=== PATIENT | male | born 1970 | race Caucasian/White ===

== ENCOUNTER 2017-05-11 16:18 | Observation (INO) | payer OTHER ==
[~2017-05-11 16:18] MED LIST: METF500T PO
[2017-05-11 20:00] VITALS: BP 156/98; PULSE 58; RESP 18; TEMP 98.1; O2SAT 98
[2017-05-11] MEDS ORDERED: ZOLPIDEM TARTRATE 10 MG TAB PO PRN (21:45)
[2017-05-12] VITALS (7 sets, daily range): BP systolic 140–177; BP diastolic 82–102; PULSE 56–84; RESP 18–20; TEMP 97.9–98.1; O2SAT 94–97
[2017-05-12] MEDS ORDERED: NITROGLYCERIN 0.4 MG SL 25 TABS/BTL SL PRN (07:45)
[2017-05-12] MEDS ORDERED: ACETAMINOPHEN 500 MG CPLT PO PRN (07:45)
[2017-05-12] MEDS ORDERED: SODIUM CHLORIDE 0.9% FLUSH 10 ML FLUSH IV FLUSH PRN (07:45)
[2017-05-12] MEDS ORDERED: ONDANSETRON HCL 4 MG/2 ML VIAL IV PUSH PRN (07:45)
[2017-05-12] MEDS ORDERED: LISINOPRIL 10 MG TAB PO SCH (09:00)
[2017-05-12] MEDS ORDERED: ASPIRIN 325 MG TAB PO SCH (09:00)
[2017-05-12] MEDS ORDERED: SODIUM CHLORIDE 0.9% FLUSH 10 ML FLUSH IV FLUSH SCH (09:00)
--- NOTE | 2017-05-12 09:15 | HHI.HP ---
HPI Primary Care Physician Non-Staff Past Family Social History Allergies: Coded Allergies: No Known Allergies (Verified Allergy, Mild, 05/11/17) Reported Medications Reported Meds & Active Scripts Active Reported Metformin (Metformin HCl) 500 Mg Tab 500 Mg PO BIDPC With meals Active Ordered Medications Current Medications Medications (Trade) Dose Ordered Sig/Macy Route Start Time Stop Time Status Last Admin (Ambien) 10 mg HS PRN PO 05/11/17 21:45 05/11/17 22:40 (NS Flush) 2 ml UNSCH PRN IV FLUSH 05/12/17 07:45 (NS Flush) 2 ml BID IV FLUSH 05/12/17 09:00 (Tylenol) 500 mg Q4H PRN PO 05/12/17 07:45 (Zofran Inj) 4 mg Q6H PRN IV PUSH 05/12/17 07:45 (Prinivil) 10 mg DAILY PO 05/12/17 09:00 (Nitrostat Sl) 0.4 mg Q5M PRN SL 05/12/17 07:45 (Aspirin) 325 mg DAILY PO 05/12/17 09:00 Physical Exam Vital Signs Vital Signs Date Time Temp Pulse Resp B/P (MAP) Pulse Ox O2 Delivery O2 Flow Rate FiO2 05/12/17 08:01 97.9 05/12/17 07:51 63 20 143/83 (103) 94 05/12/17 04:20 98.1 78 18 177/102 (127) 94 05/12/17 03:02 84 05/12/17 00:33 98.0 56 18 150/87 (108) 97 05/11/17 20:00 98.1 58 18 156/98 (117) 98 Laboratory Laboratory Tests Test 05/11/17 21:22 Troponin I LESS THAN 0.02 Caprini VTE Risk Assessment Caprini Risk Assessment Model Point Value = 1 Point Value = 2 Point Value = 3 Point Value = 5 Age 41-60 Minor surgery BMI > 25 kg/m2 Swollen legs Varicose veins or History of unexplained or recurrent spontaneous Oral contraceptives or hormone replacement Sepsis (< 1 month) Serious lung disease, including pneumonia (< 1 month) Abnormal pulmonary function Acute myocardial infarction Congestive heart failure (< 1 month) History of inflammatory bowel disease Medical patient at bed rest Age 61-74 Arthroscopic surgery Major open surgery (> 45 min) Laparoscopic surgery (> 45 min) Malignancy Confined to bed (> 72 hours) Immobilizing plaster cast Central venous access Age >= 75 History of VTE Family history of VTE Factor V Leiden Prothrombin [id number] Lupus anticoagulant Anticardiolipin antibodies Elevated serum homocysteine Heparin-induced thrombocytopenia Other congenital or acquired thrombophilia Stroke (< 1 month) Elective arthroplasty Hip, pelvis, or leg fracture Acute spinal cord injury (< 1 month) Prophylaxis Regimen Total Risk Factor Score Risk Level Prophylaxis Regimen 0-1 Low Early ambulation 2 Moderate Order ONE of the following: *Sequential Compression Device (SCD) *Heparin 5000 units SQ BID 3-4 Higher Order ONE of the following medications: *Heparin 5000 units SQ TID *Enoxaparin/Lovenox 40 mg SQ daily (WT < 150 kg, CrCl > 30 mL/min) *Enoxaparin/Lovenox 30 mg SQ daily (WT < 150 kg, CrCl > 10-29 mL/min) *Enoxaparin/Lovenox 30 mg SQ BID (WT < 150 kg, CrCl > 30 mL/min) AND/OR *Sequential Compression Device (SCD) 5 or more Highest Order ONE of the following medications: *Heparin 5000 units SQ TID (Preferred with Epidurals) *Enoxaparin/Lovenox 40 mg SQ daily (WT < 150 kg, CrCl > 30 mL/min) *Enoxaparin/Lovenox 30 mg SQ daily (WT < 150 kg, CrCl > 10-29 mL/min) *Enoxaparin/Lovenox 30 mg SQ BID (WT < 150 kg, CrCl > 30 mL/min) AND *Sequential Compression Device (SCD) Francine Cyr May 12, 2017 09:15
--- NOTE | 2017-05-12 09:21 | HHI.HP ---
HPI Primary Care Physician Non-Staff Past Family Social History Allergies: Coded Allergies: No Known Allergies (Verified Allergy, Mild, 05/11/17) Reported Medications Reported Meds & Active Scripts Active Reported Metformin (Metformin HCl) 500 Mg Tab 500 Mg PO BIDPC With meals Active Ordered Medications Current Medications Medications (Trade) Dose Ordered Sig/Macy Route Start Time Stop Time Status Last Admin (Ambien) 10 mg HS PRN PO 05/11/17 21:45 05/11/17 22:40 (NS Flush) 2 ml UNSCH PRN IV FLUSH 05/12/17 07:45 (NS Flush) 2 ml BID IV FLUSH 05/12/17 09:00 (Tylenol) 500 mg Q4H PRN PO 05/12/17 07:45 (Zofran Inj) 4 mg Q6H PRN IV PUSH 05/12/17 07:45 (Prinivil) 10 mg DAILY PO 05/12/17 09:00 (Nitrostat Sl) 0.4 mg Q5M PRN SL 05/12/17 07:45 (Aspirin) 325 mg DAILY PO 05/12/17 09:00 Physical Exam Vital Signs Vital Signs Date Time Temp Pulse Resp B/P (MAP) Pulse Ox O2 Delivery O2 Flow Rate FiO2 05/12/17 08:01 97.9 05/12/17 07:51 63 20 143/83 (103) 94 05/12/17 04:20 98.1 78 18 177/102 (127) 94 05/12/17 03:02 84 05/12/17 00:33 98.0 56 18 150/87 (108) 97 05/11/17 20:00 98.1 58 18 156/98 (117) 98 Laboratory Laboratory Tests Test 05/11/17 21:22 Troponin I LESS THAN 0.02 Caprini VTE Risk Assessment Caprini Risk Assessment Model Point Value = 1 Point Value = 2 Point Value = 3 Point Value = 5 Age 41-60 Minor surgery BMI > 25 kg/m2 Swollen legs Varicose veins or History of unexplained or recurrent spontaneous Oral contraceptives or hormone replacement Sepsis (< 1 month) Serious lung disease, including pneumonia (< 1 month) Abnormal pulmonary function Acute myocardial infarction Congestive heart failure (< 1 month) History of inflammatory bowel disease Medical patient at bed rest Age 61-74 Arthroscopic surgery Major open surgery (> 45 min) Laparoscopic surgery (> 45 min) Malignancy Confined to bed (> 72 hours) Immobilizing plaster cast Central venous access Age >= 75 History of VTE Family history of VTE Factor V Leiden Prothrombin [id number] Lupus anticoagulant Anticardiolipin antibodies Elevated serum homocysteine Heparin-induced thrombocytopenia Other congenital or acquired thrombophilia Stroke (< 1 month) Elective arthroplasty Hip, pelvis, or leg fracture Acute spinal cord injury (< 1 month) Prophylaxis Regimen Total Risk Factor Score Risk Level Prophylaxis Regimen 0-1 Low Early ambulation 2 Moderate Order ONE of the following: *Sequential Compression Device (SCD) *Heparin 5000 units SQ BID 3-4 Higher Order ONE of the following medications: *Heparin 5000 units SQ TID *Enoxaparin/Lovenox 40 mg SQ daily (WT < 150 kg, CrCl > 30 mL/min) *Enoxaparin/Lovenox 30 mg SQ daily (WT < 150 kg, CrCl > 10-29 mL/min) *Enoxaparin/Lovenox 30 mg SQ BID (WT < 150 kg, CrCl > 30 mL/min) AND/OR *Sequential Compression Device (SCD) 5 or more Highest Order ONE of the following medications: *Heparin 5000 units SQ TID (Preferred with Epidurals) *Enoxaparin/Lovenox 40 mg SQ daily (WT < 150 kg, CrCl > 30 mL/min) *Enoxaparin/Lovenox 30 mg SQ daily (WT < 150 kg, CrCl > 10-29 mL/min) *Enoxaparin/Lovenox 30 mg SQ BID (WT < 150 kg, CrCl > 30 mL/min) AND *Sequential Compression Device (SCD) Assessment and Plan Assessment and Plan Atypical chest pain Diabetes Hypertension Tobacco use Francine Cyr May 12, 2017 09:21
--- NOTE | 2017-05-12 10:38 | HHI.HP ---
[facility] Primary Care Physician Dr. Sandra Yeager ([facility]) Chief Complaint Chest pain History of Present Illness 46-year-old male with history of diabetes presents to emergency room for further evaluation of chest pain. Onset 2 nights ago while watching TV. Location substernal and left anterior chest. Initially thought discomfort was related to indigestion and took 1 Tums. Pain continued and he was able to fall sleep. Upon awakening chest pressure continued. He proceeded to go to work while driving to work and increase of pressure. After arriving at work he felt "poorly." He decided to leave work and go to emergency room for further evaluation of pain. Duration Constant.No Radiation of pain. Associated symptoms Included slight nausea, shortness of breath. Denying vomiting or diaphoresis. It did not hurt to take a deep breath. No known precipitating or relieving factors. Currently reports only "slight chest pressure." Review of Systems General: No fatigue,weakness, fever, chills, recent illness, or change in appetite. Endorses he quit using metformin 3 weeks ago while on vacation and never restarted. Otherwise has been in his general state of health. HEENT: No Damon CV: As stated above. No palpitations or dizziness. RESP: No SOB, cough, sputum production, recent URI, history of asthma, or wheezing. Diagnosis sleep apnea approximately 10 years ago, does not use CPAP. GI: No nausea, vomiting, bowel changes, diarrhea, constipation, pain, distention , melena, or blood in the stool. No change in appetite, no unintentional weight gain or weight loss. : No dysuria, urgency, or frequency EXT: No lower leg edema, no paraesthesias MS: No discomfort, injury, trauma, recent fall, or change in ROM. Intermittent upon awakening in morning, bilateral lower extremity cramping. Also reports x2 weekly, legs become week and he falls to his knees (happening for about 3 months ). NEURO: No change in memory, dizziness, difficulty with balance, LOC, motor/ sensory deficits PSYCH: No anxiety or depression. Current situation stress at his employment. SKIN: No rashes, no concerning lesions Past Family Social History Allergies: Coded Allergies: No Known Allergies (Verified Allergy, Mild, 05/11/17) Past Medical History Diabetes (type II)-diagnosed 07/2016 Past Surgical History None Reported Medications Active Reported Metformin (Metformin HCl) 500 Mg Tab 500 Mg PO BIDPC-HAS NOT TAKEN IN 3 WEEKS Active Ordered Medications Current Medications Medications (Trade) Dose Ordered Sig/Macy Route Start Time Stop Time Status Last Admin (Ambien) 10 mg HS PRN PO 05/11/17 21:45 05/11/17 22:40 (NS Flush) 2 ml UNSCH PRN IV FLUSH 05/12/17 07:45 (NS Flush) 2 ml BID IV FLUSH 05/12/17 09:00 05/12/17 09:28 (Tylenol) 500 mg Q4H PRN PO 05/12/17 07:45 (Zofran Inj) 4 mg Q6H PRN IV PUSH 05/12/17 07:45 (Prinivil) 10 mg DAILY PO 05/12/17 09:00 05/12/17 09:26 (Nitrostat Sl) 0.4 mg Q5M PRN SL 05/12/17 07:45 (Aspirin) 325 mg DAILY PO 05/12/17 09:00 05/12/17 09:26 Family History No early onset cardiovascular disease Social History Diagnosis with diabetes 9 months ago. No known hypertensive, CAD, or hyperlipidemia. Rarely smokes cigarettes reporting 2/month. Rare alcohol use. Denies any illegal drug use. Endorses a sedentary lifestyle. . Works in customer service at a [employer] Past Cardiac Testing None Physical Exam Vital Signs Vital Signs Date Time Temp Pulse Resp B/P (MAP) Pulse Ox O2 Delivery O2 Flow Rate FiO2 05/12/17 08:01 97.9 05/12/17 07:51 63 20 143/83 (103) 94 05/12/17 04:20 98.1 78 18 177/102 (127) 94 05/12/17 03:02 84 05/12/17 00:33 98.0 56 18 150/87 (108) 97 05/11/17 20:00 98.1 58 18 156/98 (117) 98 Physical Exam GENERAL: Alert WN, WD, NAD, pleasant, male HEAD: NC, AT EYES: Sclera clear, conjunctiva without injection, pupils equal and round ENT: Mucous membranes pink and moist NECK: Supple, no masses, trachea midline CV: RRR, without murmur, rub, gallop, no JVD, S1-S2 no S3-S4. No carotid or femoral bruits. RESP: Clear lungs throughout bilateral, no crackles, wheeze, rhonchi, symmetrical chest rise, nonlabored, able to speak in full sentences ABD: Soft, NT, ND, no masses, positive bowel tones EXT: Pulses +24, no dependent edema MS: Normal tone 4 extremities, nontender, no obvious deformities, full range of motion NEURO: CN II through CN XII grossly intact, motor strength 5/5, gait WNL PSYCH: A+O 3, pleasant affect, appropriate speech, appropriate mood and affect , insight and judgment SKIN: Normal turgor, normal texture, no lesions, no rashes, brisk cap refill, even hair distribution Laboratory Laboratory Tests Test 05/11/17 21:22 Troponin I LESS THAN 0.02 Imaging Chest x-ray completed [facility].. Interpreted by radiologist read as no acute cardiopulmonary findings. Course EKG Normal sinus rhythm, normal axis, no ST change, nonspecific T-wave changes Caprini VTE Risk Assessment Caprini VTE Risk Assessment: No/Low Risk (score <= 1) Caprini Risk Assessment Model Point Value = 1 Point Value = 2 Point Value = 3 Point Value = 5 Age 41-60 Minor surgery BMI > 25 kg/m2 Swollen legs Varicose veins or History of unexplained or recurrent spontaneous Oral contraceptives or hormone replacement Sepsis (< 1 month) Serious lung disease, including pneumonia (< 1 month) Abnormal pulmonary function Acute myocardial infarction Congestive heart failure (< 1 month) History of inflammatory bowel disease Medical patient at bed rest Age 61-74 Arthroscopic surgery Major open surgery (> 45 min) Laparoscopic surgery (> 45 min) Malignancy Confined to bed (> 72 hours) Immobilizing plaster cast Central venous access Age >= 75 History of VTE Family history of VTE Factor V Leiden Prothrombin [id number] Lupus anticoagulant Anticardiolipin antibodies Elevated serum homocysteine Heparin-induced thrombocytopenia Other congenital or acquired thrombophilia Stroke (< 1 month) Elective arthroplasty Hip, pelvis, or leg fracture Acute spinal cord injury (< 1 month) Prophylaxis Regimen Total Risk Factor Score Risk Level Prophylaxis Regimen 0-1 Low Early ambulation 2 Moderate Order ONE of the following: *Sequential Compression Device (SCD) *Heparin 5000 units SQ BID 3-4 Higher Order ONE of the following medications: *Heparin 5000 units SQ TID *Enoxaparin/Lovenox 40 mg SQ daily (WT < 150 kg, CrCl > 30 mL/min) *Enoxaparin/Lovenox 30 mg SQ daily (WT < 150 kg, CrCl > 10-29 mL/min) *Enoxaparin/Lovenox 30 mg SQ BID (WT < 150 kg, CrCl > 30 mL/min) AND/OR *Sequential Compression Device (SCD) 5 or more Highest Order ONE of the following medications: *Heparin 5000 units SQ TID (Preferred with Epidurals) *Enoxaparin/Lovenox 40 mg SQ daily (WT < 150 kg, CrCl > 30 mL/min) *Enoxaparin/Lovenox 30 mg SQ daily (WT < 150 kg, CrCl > 10-29 mL/min) *Enoxaparin/Lovenox 30 mg SQ BID (WT < 150 kg, CrCl > 30 mL/min) AND *Sequential Compression Device (SCD) Assessment and Plan Assessment and Plan #1 Atypical chest pain-admitted to chest pain center. Ruled out with 3 sets of EKGs, cardiac enzymes, and monitored overnight. Seen and evaluated by Dr. Garrick Serrano. Completed exercise stress test which did not indicate ischemia. Discharge later this afternoon. Follow-up with PCP if pain persists. Instructed discomfort likely musculoskeletal, use heating pad to affected area, and/or [id number] Aleve or Motrin as needed. Patient agreeable to plan of care. #2 Diabetes-reorder metformin (refills provided), encouraged increasing daily activity, discussed in length diabetic diet, avoiding sugar, flour, and sugary beverages. Discussed importance of tight blood glucose control, effects of uncontrolled diabetes, and how diabetes is a progressive disease. Encouraged obtaining a baseline eye exam and follow-up with PCP. Notify PCP of bilateral lower leg discomfort accompanied with intermittent weakness to discuss possible neuropathy. #3 Hypertension-lisinopril 10 mg daily, encouraged low sodium diet, blood pressure log, and follow-up with PCP. Education provided lisinopril is renal protective with diabetes diagnosis. #4 Tobacco use-encouraged and stressed the importance of tobacco cessation even in small amounts. Instructed to avoid tobacco all together. Francine Cyr May 12, 2017 10:38
[2017-05-12] MEDS ORDERED: METF500T PO (10:53)
[2017-05-12] MEDS ORDERED: LISI10TA3 PO (10:53)
--- NOTE | 2017-05-12 11:00 | HHI.DCPOC ---
Discharge Care Plan Diagnosis: (1) Atypical chest pain (2) Hypertension (3) Type 2 diabetes mellitus Goals to Promote Your Health * To prevent worsening of your condition and complications * To maintain your health at the optimal level Directions to Meet Your Goals Take your medications as prescribed Follow your dietary instruction Follow activity as directed Keep your appointments as scheduled Take your immunizations and boosters as scheduled If your symptoms worsen call your PCP, if no PCP go to Urgent Care Center or Emergency Room Smoking is Dangerous to Your Health. Avoid second hand smoke Call the 24-hour hour crisis hotline for domestic abuse at Francine Cyr May 12, 2017 11:00
--- NOTE | 2017-05-12 13:26 | TR ---
Date Performed: 05/12/2017 Time Performed: 10:31:48 DOCTOR: Garrick Serrano DRUG LIST: CLINICAL HISTORY: CHEST PAIN REASON FOR TEST: Chest pain REASON FOR ENDING: OBSERVATION: CONCLUSION: Viraj protocol performed test stopped secondary to exceeding target heart rate and l eg fatigue. No reproduciple chest pain. No ST segment changes to indicate ischemia. No ectopy. Hypert ensive BP response. Quick and unremarkable recovery. 6 minutes post recovery T waves upright, returni ng to t wave inversion at [address] depression inferiorly and lead V5, V6. Good exer cise tolerance. Maximum AN=183 Target HR Achieved=90.0% Maximum IX=909/106 Total Exercise Time=8:11 COMMENTS: Conclusion: Normal treadmill exercise. No evidence of ischemia.
--- NOTE | 2017-05-14 14:18 | EKG ---
Date Performed: 05/11/2017 Time Performed: 21:23:05 PTAGE: 46 years EKG: SINUS BRADYCARDIA NONSPECIFIC T-WAVE ABNORMALITY BORDERLINE ECG NO PREVIOUS TRACING DOCTOR: Yohannes Zheng Interpretating Date/Time 05/14/2017 14:16:31
== END 2017-05-12 12:32 | disposition home or self-care (01) ==
LOC: NEDDLT 18:58 → NEPFCDU 19:08
PROVIDERS: ADMIT Internal Medicine Cardiovascular Disease; ATTEND Internal Medicine Cardiovascular Disease
DX: R07.89 Other chest pain (principal); I10 Essential (primary) hypertension; E11.9 Type 2 diabetes mellitus without complications; R94.31 Abnormal electrocardiogram [ECG] [EKG]
CPT/HCPCS: 71010; 80048; 82550; 83735; 84484; 85025; 85610; 85730; 93005; 93017; 96360; 99285; G0378; J7040